=== PATIENT | male | born 1965 | race Caucasian/White ===

== ENCOUNTER 2019-10-06 23:55 | Emergency (ER) | payer OTHER ==
[~2019-10-06] VITALS: Ht 172.7 cm; Wt 79.4 kg
[2019-10-07] MEDS ORDERED: DILANTIN100 MG PO (23:39)
== END 2019-10-07 05:58 | disposition home or self-care (01) ==
LOC: ED 23:55
DX: F10.129 Alcohol abuse with intoxication, unspecified (principal); E87.6 Hypokalemia
CPT/HCPCS: 70450; 80053; 85025; 96365; 96366; 99285-25; G0480; J3480

== ENCOUNTER 2019-10-07 23:30 | Emergency (ER) | payer OTHER ==
[~2019-10-07] VITALS: Ht 172.7 cm; Wt 79.4 kg
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
[2019-10-07] MEDS ORDERED: DILANTIN100 MG PO (23:39)
== END 2019-10-08 01:48 | disposition home or self-care (01) ==
LOC: ED 23:30
DX: G40.909 Epilepsy, unspecified, not intractable, without status epilepticus (principal); S92.414A Nondisplaced fracture of proximal phalanx of right great toe, initial encounter for closed fracture; F17.200 Nicotine dependence, unspecified, uncomplicated; Z79.899 Other long term (current) drug therapy; X58.XXXA Exposure to other specified factors, initial encounter
CPT/HCPCS: 73630; 99284-25

== ENCOUNTER 2019-10-10 15:37 | Emergency (ER) | payer OTHER ==
[~2019-10-10] VITALS: Ht 167.6 cm; Wt 79.4 kg
[~2019-10-10 15:37] MED LIST: DILANTIN100 MG PO
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
[2019-10-10] MEDS ORDERED: KEPPRA500 MG PO (17:05)
--- NOTE | 2019-10-10 20:44 | EKG ---
[facility] [address] [place], [place] [address] Signed Normal sinus rhythm Normal ECG No previous ECGs available Confirmed by RIP ODELL MD ([id number]) on 10/10/2019 8:44:02 PM Electronically Signed By: RIP ODELL MD 10/10/19 2044 PATIENT NAME: ARIELLEKUNAL Electrocardiogram DATE OF : 61 PHYSICIAN: IRP ODELL MD REPORT #: [id number] REPORT IS CONFIDENTIAL AND NOT TO BE RELEASED WITHOUT AUTHORIZATION
== END 2019-10-10 17:20 | disposition home or self-care (01) ==
LOC: ED 15:37
DX: G40.909 Epilepsy, unspecified, not intractable, without status epilepticus (principal); E87.6 Hypokalemia; E83.42 Hypomagnesemia; F17.200 Nicotine dependence, unspecified, uncomplicated; Z79.899 Other long term (current) drug therapy
CPT/HCPCS: 80053; 80185; 81001; 83735; 84484; 85025; 93005; 93010; 99284-25; G0480; J1953

== ENCOUNTER 2019-10-14 15:57 | Emergency (ER) | payer OTHER ==
[~2019-10-14] VITALS: Ht 167.6 cm; Wt 79.4 kg
[~2019-10-14 15:57] MED LIST changes: +KEPPRA500 MG PO
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
[2019-10-15] MEDS ORDERED: DILANTIN100 MG PO ×3 (15:30→15:35)
[2019-10-15] MEDS ORDERED: KEPPRA500 MG PO ×3 (15:30→15:35)
== END 2019-10-14 19:32 | disposition home or self-care (01) ==
LOC: ED 15:57
DX: F10.129 Alcohol abuse with intoxication, unspecified (principal); F17.200 Nicotine dependence, unspecified, uncomplicated; Z79.899 Other long term (current) drug therapy; Y90.8 Blood alcohol level of 240 mg/100 ml or more
CPT/HCPCS: 80053; 85025; 96360; 99284-25; G0480; J7030

== ENCOUNTER 2019-10-15 14:03 | Emergency (ER) | payer OTHER ==
[~2019-10-15] VITALS: Ht 167.6 cm; Wt 79.4 kg
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
[2019-10-15] MEDS ORDERED: KEPPRA500 MG PO ×3 (15:30→15:35)
[2019-10-15] MEDS ORDERED: DILANTIN100 MG PO ×3 (15:30→15:35)
== END 2019-10-15 15:47 | disposition home or self-care (01) ==
LOC: ED 14:03
DX: T24.002D Burn of unspecified degree of unspecified site of left lower limb, except ankle and foot, subsequent encounter (principal); F10.10 Alcohol abuse, uncomplicated; G40.909 Epilepsy, unspecified, not intractable, without status epilepticus; F17.200 Nicotine dependence, unspecified, uncomplicated; Z79.899 Other long term (current) drug therapy
CPT/HCPCS: 99283

== ENCOUNTER 2019-10-17 12:47 | Emergency (ER) | payer OTHER ==
[~2019-10-17] VITALS: Ht 167.6 cm; Wt 79.4 kg
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
== END 2019-10-17 13:15 | disposition home or self-care (01) ==
LOC: ED 12:47
DX: Z53.21 Procedure and treatment not carried out due to patient leaving prior to being seen by health care provider (principal)

== ENCOUNTER 2019-10-22 13:07 | Emergency (ER) | payer OTHER ==
[~2019-10-22] VITALS: Ht 167.6 cm; Wt 79.4 kg
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
== END 2019-10-22 17:54 | disposition home or self-care (01) ==
LOC: ED 13:07
DX: R45.1 Restlessness and agitation (principal); F10.20 Alcohol dependence, uncomplicated; Y90.8 Blood alcohol level of 240 mg/100 ml or more; F17.200 Nicotine dependence, unspecified, uncomplicated; Z79.899 Other long term (current) drug therapy
CPT/HCPCS: 70450; 80053; 81001; 82542; 83690; 85025; 96372; 99285-25; G0480; J2060

== ENCOUNTER 2024-08-02 21:36 | Emergency (ER) | payer OTHER ==
[~2024-08-02] VITALS: Ht 167.6 cm; Wt 82.6 kg
[2024-08-02 21:54] LABS: BASOPHILS 0.6 % (0-2); EOSINOPHILS 0.4 % (0-6); HEMATOCRIT 45.3 % (35.0-50.0); HEMOGLOBIN 16.5 g/dL (12.0-18.0); LYMPHOCYTES 23.6 % (24-44); MCH 32.6 (27-36); MCHC 36.5 g/dl (30-36); MCV 89.1 fl (81-99); MONOCYTES 6.4 % (0-12); PLATELET COUNT 256 K/uL (140-440); RBC 5.08 M/ul (4.3-5.7); RDW 13.2 (10.5-15.0)
[2024-08-02 22:03] LABS: ALBUMIN 4.1 g/dL (3.4-5.0); ALBUMIN/GLOBULIN RATIO 1.32 (1.1-2.4); ANION GAP 13.2 (7-21); BILIRUBIN, TOTAL 0.9 mg/dL (0.2-1.0); BUN/CREATININE RATIO 12.5 (6.0-28.6); CALCIUM 8.5 mg/dL (8.5-10.1); CREATININE, SERUM 0.8 mg/dL (0.70-1.30); POTASSIUM 3.2 mmol/L (3.5-5.1); PROTEIN, TOTAL 7.2 g/dL (6.4-8.2)
[2024-08-02 22:31] VITALS: BP 114/77
[2024-08-02 22:32] LABS: BILIRUBIN, URINE NEGATIVE (negative); BLOOD/HGB, URINE NEGATIVE (Negative); KETONE, URINE NEGATIVE (Negative); LEUK ESTERASE, URINE NEGATIVE (negative); NITRITE, URINE NEGATIVE (negative)
[2024-08-02 22:40] LABS: AMPHETAMINES, URINE NEGATIVE (NEGATIVE); BARBITURATES, URINE NEGATIVE (NEGATIVE); BENZODIAZEPINE, URINE NEGATIVE (NEGATIVE); BUPRENORPHINE, URINE NEGATIVE (NEGATIVE); CANNABINOID, URINE POSITIVE (NEGATIVE); COCAINE, URINE NEGATIVE (NEGATIVE); ECSTASY, URINE NEGATIVE (NEGATIVE); FENTANYL, URINE NEGATIVE (NEGATIVE); METHADONE, URINE NEGATIVE (NEGATIVE); OPIATES, URINE NEGATIVE (NEGATIVE); OXYCODONE, URINE NEGATIVE (NEGATIVE); PHENCYCLIDINE, URINE NEGATIVE (NEGATIVE)
--- NOTE | 2024-08-03 17:49 | EKG ---
[facility] [address] [facility] [address] [facility] [place] [address] Signed Normal sinus rhythm Septal infarct , age undetermined Abnormal ECG When compared with ECG of 10-OCT-2019 15:43, Inverted T waves have replaced nonspecific T wave abnormality in Inferior leads Confirmed by Michelet Albarado DO ([id number]) on 08/03/2024 5:49:08 PM Electronically Signed By: MICHELET ALBARADO DO 08/03/24 1749 PATIENT NAME: ARIELLEKUNAL HARTMAN Electrocardiogram DATE OF : 61 PHYSICIAN: MICHELET ALBARADO DO REPORT #: [id number] REPORT IS CONFIDENTIAL AND NOT TO BE RELEASED WITHOUT AUTHORIZATION
== END 2024-08-02 22:27 | disposition left against medical advice (07) ==
LOC: ED 21:36
PROVIDERS: Internal Medicine
DX: R56.9 Unspecified convulsions (principal); M25.532 Pain in left wrist; Z53.21 Procedure and treatment not carried out due to patient leaving prior to being seen by health care provider; Z87.820 Personal history of traumatic brain injury; Z91.148 Patient's other noncompliance with medication regimen for other reason; Z79.899 Other long term (current) drug therapy
CPT/HCPCS: 36415; 73110; 80053; 80307; 81003; 85025; 93005; 93010; G0480